=== PATIENT | male | born 1945 | race Caucasian/White ===

== ENCOUNTER 2022-06-12 09:22 | Emergency (ER) | payer MEDICARE, BC ==
[~2022-06-12] VITALS: Ht 172.7 cm; Wt 79.5 kg
[~2022-06-12 09:22] MED LIST: ALBU8.5H17 IH; DOCU100C40 PO; LACT1CAP26 PO; LISI-230 PO; PRAV40TA65 PO; SODI650T29 PO
[2022-06-12 10:16] LABS: BASOPHILS % (AUTO) 0.9 % (0-1); EOSINOPHILS % (AUTO) 0.4 % (0-6); HEMATOCRIT 33.4 % (42.0-52.0); HEMOGLOBIN 11.6 g/dl (14.0-17.9); LYMPHOCYTES # (AUTO) 0.8 X10'3 (1.1-4.8); LYMPHOCYTES % (AUTO) 19.9 % (21-51); MEAN CORPUSCULAR HEMOGLOBIN 33.1 PG (27.0-31.0); MEAN CORPUSCULAR HGB CONC 34.6 g/dL (33.0-36.5); MEAN CORPUSCULAR VOLUME 95.5 FL (78-98); MONOCYTES # (AUTO) 0.6 X10'3 (0-0.9); MONOCYTES % (AUTO) 13.7 % (2-12); NEUTROPHILS # (AUTO) 2.8 X10'3 (1.8-7.7); NEUTROPHILS % (AUTO) 65.1 % (42-75); PLATELET COUNT 392 X10'3 (140-440); RED CELL DISTRIBUTION WIDTH 13.9 % (11.5-14.5); WHITE BLOOD COUNT 4.3 X10'3 (4.5-11.0)
[2022-06-12 10:28] LABS: ALANINE AMINOTRANSFERASE 54 U/L (12-78); ALBUMIN 3.9 G/DL (3.4-5.0); ALBUMIN/GLOBULIN RATIO 0.9 (1.1-1.5); ALKALINE PHOSPHATASE 20 IU/L (46-116); ANION GAP 14 (8-16); ASPARTATE AMINO TRANSFERASE 120 U/L (10-37); BILIRUBIN,TOTAL 0.3 MG/DL (0.1-1.0); BLOOD UREA NITROGEN 27 MG/DL (7-18); BUN/CREATININE RATIO 11.9 (5.4-32.0); CALCIUM 8.4 MG/DL (8.5-10.1); CHLORIDE 100 MMOL/L (99-107); CREATININE 2.26 MG/DL (0.60-1.10); GLUCOSE 101 MG/DL (70-104); POTASSIUM 3.5 MMOL/L (3.5-5.1); SODIUM 134 MMOL/L (135-145); TOTAL CARBON DIOXIDE 20.4 MMOL/L (24-32); TOTAL PROTEIN 8.3 G/DL (6.4-8.2); eGFR 28 ML/MIN
[2022-06-12 12:02] LABS: MAGNESIUM 1.8 MG/DL (1.5-2.4)
[2022-06-12 12:03] LABS: CREATINE KINASE 2808 U/L (39-308)
[2022-06-12] MEDS ORDERED: normal saline 1000ML IV soln IVB ONE (13:50)
[2022-06-12 13:54] LABS: C-REACTIVE PROTEIN 3.04 MG/DL (0.0-0.5)
[2022-06-12] MEDS ORDERED: BEBTELOVIMAB 175 MG/2 ML VIAL IV ONE ×2 (17:30→18:30)
[2022-06-12] MEDS ORDERED: acetaminophen 325mg tablet PO ONE (17:35)
[2022-06-12 20:48] VITALS: BP 147/86
== END 2022-06-12 20:50 | disposition home or self-care (01) ==
LOC: ER 09:23
DX: U07.1 COVID-19 (principal); I11.9 Hypertensive heart disease without heart failure; E78.00 Pure hypercholesterolemia, unspecified; K21.9 Gastro-esophageal reflux disease without esophagitis; E11.9 Type 2 diabetes mellitus without complications; Z79.899 Other long term (current) drug therapy
CPT/HCPCS: 36415; 71045; 80053; 82550; 83735; 84484; 85025; 85651; 86140; 87635; 93005; 96360; 96361; 99285; C9803; J7030; M0222; Q0222

== ENCOUNTER 2025-06-14 11:21 | Inpatient (IN) | payer MEDICARE, BC ==
[~2025-06-14] VITALS: Ht 172.7 cm; Wt 73.9 kg
--- NOTE | 2025-06-14 12:51 | Physician Documentation ---
History of Present Illness ~ Chief Complaint: Mechanical Fall Stated Complaint: FELL LAST WEEK Time Seen by MD: 12:26 Primary Medical Doctor: Dr. Campo Source: patient (Bed 10) HPI Patient comes in for evaluation of equilibrium problems and falls. He reports that over the last six months he began to have some problems with balance and equilibrium, which started out mild but have gotten somewhat worse. On Tuesday, while out of state, the patient was sitting on a couch and when he was helped up to his feet he found that he could not stand up and stay standing, secondary to weakness and balance difficulties. After a while he felt improved, and drove himself back to his motel, where he fell backwards, striking his head against a door jam but not losing consciousness. He was unable to stand up and was helped to crawl into his motel room, reports that he spent an hour and a half on the ground and eventually was able to stand. On Tuesday three days ago he was able to go to the airport, and to fly home to [place] and drive back to [place], but he has been staggering, feeling off balance, and feeling like he is going to fall. Additionally, the patient reports night sweats, but does not know if he has had any fever. He denies any associated cough, shortness for breath, chest pain, abdominal pain, dysuria, or any other new symptoms. When he spoke with his PMD, he was advised to take the ambulance to the hospital for further evaluation. Tetanus within 5 Years?: Yes Medication Reconciliation Allergies: Coded Allergies: No Known Allergies (Unverified , 06/14/25) Scheduled Amlodipine Besylate (Amlodipine Besylate), 1 TAB PO DAILY, (Reported) Mesalamine (Mesalamine ER), 2 CAP PO DAILY, (Reported) Rosuvastatin Calcium (Rosuvastatin Calcium), 1 TAB PO HS, (Reported) Discontinued Medications Albuterol Sulfate (Proair Hfa), 2 PUFFS IH Q4H PRN for SOB or wheezing Discontinued Reason: patient no longer taking Docusate Sodium (Docusate Sodium), 100 MG PO BID Discontinued Reason: patient no longer taking Lactobacillus Rhamnosus (Culturelle), 10,000 MMU PO BIDWM Discontinued Reason: patient no longer taking Lisinopril/Hydrochlorothiazide 10-12.5 Mg* (Lisinopril-Hctz 10-12.5 Mg*), 1 EACH PO DAILY, (Reported) Discontinued Reason: patient no longer taking Pravastatin Sodium* (Pravachol*), 40 MG PO DAILY, (Reported) Discontinued Reason: patient no longer taking Sodium Bicarbonate (Antacid), 650 MG PO QID Discontinued Reason: patient no longer taking Past Medical History Past Medical History: CVA/TIA/Stroke (Many years ago), High Cholesterol, Hypertension, GERD, Diabetes, Osteoarthritis, *CANCER* Other Past Medical History: Carotid plaque Past Surgical History: noncontributory Smoking Status: Never smoker Alcohol Use: Rarely Drug Use: none Lives with: Alone Lives In: Home Occupation: employed, other Review of Systems All Other Systems at this time: Reviewed and Negative Physical Exam Vital Signs: Temperature: 99.5, Source: Oral, Heart Rate: 70, Respiratory Rate: 12, BP: 136/66, Pulse Oximetry: 94, Weight: 73.900 Oxygen Flow Rate: 0 Physical Exam General: Pt is awake, alert, oriented x4 in no acute distress and well appearing. Head: Normocephalic and atraumatic. Eyes: Conjunctiva normal. ENT: Mucous membranes moist. Neck: Supple. Chest: Clear to auscultation bilaterally, without rales, rhonchi, or wheezes. There is no accessory muscle use or retractions. Cardiac: Regular rate and rhythm without murmurs, gallops or rubs. Palpation of the chest wall is normal. Abd: Soft, nondistended, nontender, with normoactive bowel sounds. No guarding or rebound. Extremities: Within normal limits without cyanosis, clubbing, or edema. Skin: [place], warm and dry with no significant rash appreciated. Neuro: Cranial nerves II-XII intact. 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 Gait not tested during this examination due to his history of equilibrium. Progress Results/Orders Results/Orders Orders - CINTHIA CASTLE MD Chest,Single View (06/14/25 12:51) Monitor (06/14/25 12:51) Saline Lock (06/14/25 12:51) Ct Head (06/14/25 13:11) Page Hospitalist (06/14/25 14:55) Fill Out Med Reconciliation (06/14/25 14:55) Completed Orders - CINTHIA CASTLE MD Cbc/Diff (06/14/25 12:51) Electrocardiogram (06/14/25 12:51) Chest,Single View (06/14/25 12:51) Hs Troponin I W Calculations (06/14/25 12:51) CMP (06/14/25 12:51) Ct Head (06/14/25 13:11) Ua W/Microscopic, Cult If Ind (06/14/25 14:00) Vital Signs 06/14/25 06/14/25 06/14/25 06/14/25 11:25 12:00 12:57 13:00 Temp 99.5 Pulse 70 68 66 Resp 12 11 12 B/P (MAP) 136/66 127/68 (87) 126/70 (88) Pulse Ox 94 96 96 O2 Flow Rate 0 0 0 06/14/25 14:12 Pulse 64 Resp 11 B/P (MAP) 129/62 (84) Pulse Ox 97 O2 Flow Rate 0 Laboratory Tests Test 06/14/25 13:04 06/14/25 14:00 White Blood Count 9.1 Red Blood Count 3.24 L Hemoglobin 10.3 L Hematocrit 30.9 L Mean Corpuscular Volume 95.3 Mean Corpuscular Hemoglobin 31.8 H Mean Corpuscular Hemoglobin Concent 33.4 Red Cell Distribution Width 14.0 Platelet Count 366 Mean Platelet Volume 7.2 L Neutrophils (%) (Auto) 70.9 Lymphocytes (%) (Auto) 17.3 L Monocytes (%) (Auto) 10.4 Eosinophils (%) (Auto) 1.0 Basophils (%) (Auto) 0.4 Neutrophils # (Auto) 6.5 Lymphocytes # (Auto) 1.6 Monocytes # (Auto) 0.9 Eosinophils # (Auto) 0.1 Basophils # (Auto) 0.0 CBC Comment Sodium Level 135 Potassium Level 4.1 Chloride Level 102 Carbon Dioxide Level 26.2 Anion Gap 7 L Blood Urea Nitrogen 18 Creatinine 1.37 H Estimated GFR/1.73 m2 50 BUN/Creatinine Ratio 13.1 Glucose Level 102 Calcium Level 9.0 Total Bilirubin 0.5 Aspartate Amino Transf (AST/SGOT) 15 Alanine Aminotransferase (ALT/SGPT) 13 Alkaline Phosphatase 41 L Troponin I High Sensitivity 6 Total Protein 7.9 Albumin 2.9 L Globulin 5.0 H Albumin/Globulin Ratio 0.6 L Chemistry Comments Urine Specimen Description Non-specified Urine Color Yellow Urine Clarity Clear Urine pH 6.0 Urine Specific Spangle 1.010 Urine Protein 30 H Urine Glucose (UA) Negative Urine Ketones Negative Urine Occult Blood Small Urine Nitrite Negative Urine Bilirubin Negative Urine Urobilinogen 0.2 Urine Leukocyte Esterase Negative Urine RBC 3-10 Urine WBC 0-4 Urine Squamous Epithelial Cells Few Urine Bacteria Few Urine Coarse Granular Casts 0-3 Urine Culture Indicated Not ind Volume Urine Centrifuged 10 ml Urine Comment Consults/PCP Consults/PCP : Time Call Requested: 14:55 Consult Reason/Comments: Hospitalist Medical Decision Making Additional Comment Patient is suffering from progressive problems with equilibrium and balance, had a fall, concern for possible incipient falls, staggering. No acute intracranial hemorrhage or skull fracture noted on CT but there are some abnormalities that will require further investigation. As the patient is having difficulty with gait we will plan admission to the hospitalist service for further evaluation management including MRI, neurologic consultation if needed. At this time there was no significant electrolyte abnormalities or evidence for acute cardiac ischemia. Departure Time of Disposition: 14:54 Admitted to Inpatient Unit: yes, to hospitalist Impression: Primary Impression: Fall Additional Impressions: Loss of equilibrium Head trauma Condition: Guarded Referrals: NO PRIMARY CARE PROVIDER (PCP) Education Educated: Patient Educated regarding: diagnosis, treatment Signature Scribe Signature: Attestation: CINTHIA CASTLE MD Jun 14, 2025 12:51
--- NOTE | 2025-06-14 13:07 | ELECTROCARDIOGRAPH REPORT ---
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 Ramses Pa Measurements Intervals Norris Rate: 65 P: 46 TN: 178 QRS: 38 QRSD: 104 T: 59 QT: 427 QTc: 444 Interpretive Statements Sinus rhythm RSR' in V1 or V2, right VCD or RVH Electronically Signed On 06-19-2025 20:05:[address] Ramses Pa Please click the below link to view image of tracing.
[2025-06-14 13:16] LABS: MEAN PLATELET VOLUME 7.2 FL (7.4-10.4); RED CELL DISTRIBUTION WIDTH 14.0 % (11.5-14.5)
[2025-06-14 13:25] LABS: CREATININE 1.37 MG/DL (0.60-1.10); TOTAL CARBON DIOXIDE 26.2 MMOL/L (24-32); eCRCL 42 ML/MIN; eGFR 50 ML/MIN
--- NOTE | 2025-06-14 13:36 | RADIOLOGY REPORT ---
EXAM: CT CT HEAD HISTORY: dizzy, fall, head trauma COMPARISON: None TECHNIQUE: Noncontrast axial CT images of the head were performed. Sagittal and coronal reformatted i mages were obtained. This CT exam was performed using 1 or more of the following dose reduction techn iques: Automated exposure control, adjustment of the mA and/or kv according to patient size, or the u se of iterative reconstruction techniques. Radiation Dose: CTDI volume is 53.95 mGy. Dose-length product is 987.68 mGy*cm FINDINGS: There is mild global brain atrophy. No intracranial hemorrhage, mass, midline shift, hydrocephalus, o r evidence of acute large vessel infarct. There is a small cavum septum pellucidum. There is bony ero tong of the posterior sella. There are atherosclerotic calcifications of the cavernous ICAs. There is mild mucosal thickening of the bilateral maxillary sinuses. The bilateral mastoid air cells and midd le ear spaces are clear. No cranial fracture or scalp edema. IMPRESSION: 1. Erosion of the posterior sella may be due to subtle pituitary mass. Recommend follow-up pre and p ost IV contrast CT scan of the brain and sella for better characterization. 2. No other acute intracranial process is identified here. 3. Mild bilateral maxillary sinus disease.
--- NOTE | 2025-06-14 13:43 | RADIOLOGY REPORT ---
EXAM: DI CHEST,SINGLE VIEW Indication: dizzy Technique: Single frontal view of the chest was obtained Comparison: CHEST,SINGLE VIEW on DOS: 06/12/22 FINDINGS: Lines and Tubes: None Lungs: Right upper lung consolidative opacity. Pleura: No effusion. No pneumothorax. Cardiomediastinal contours: Unremarkable. Atherosclerotic vascular calcifications of the thoracic ao rta are noted. Bones: No acute osseous abnormality. IMPRESSION: Right upper lung consolidative opacity.
[2025-06-14 14:18] LABS: LEUKOCYTE ESTERASE ,URINE NEGATIVE (Neg); NITRITES, URINE NEGATIVE (Neg); OCCULT BLOOD,URINE SMALL (Neg)
[2025-06-14 14:31] LABS: UA COLLECTION TYPE NON-SPECIFIED
[2025-06-14 14:32] LABS: SQUAMOUS EPITHELIAL CELL,UR FEW /LPF (FEW)
[2025-06-14 14:33] LABS: COARSE GRANULAR CAST 0-3 /LPF (NEGATIVE)
[2025-06-14] MEDS ORDERED: AMLO5TAB16 PO (15:58)
[2025-06-14] MEDS ORDERED: MESA0.374 PO (15:58)
[2025-06-14] MEDS ORDERED: ROSU10TA72 PO (15:58)
[2025-06-14] MEDS ORDERED: mag hydrox/Alum hydrox/simeth 30ml oral suspension PO PRN (16:15)
[2025-06-14] MEDS ORDERED: magnesium hydroxide 30ml (MOM) UD suspension PO PRN (16:15)
[2025-06-14] MEDS ORDERED: magnesium sulf-water 2g/50mL 50 ML IV PRN (16:15)
[2025-06-14] MEDS ORDERED: magnesium sulf-water 4G/100mL 100 ML IV PRN (16:15)
[2025-06-14] MEDS ORDERED: potassium Cl 40MEQ/1/2NS 520ml 520 ML IV PRN (16:15)
[2025-06-14] MEDS ORDERED: ondansetron/PF 4mg/2ml inj IV PRN (16:15)
[2025-06-14] MEDS ORDERED: potassium Cl 20 mEq SR tablet PO PRN ×2 (16:15)
[2025-06-14] MEDS ORDERED: magnesium Cl slow-release 64mg tablet PO PRN (16:15)
--- NOTE | 2025-06-14 16:58 | HISTORY AND PHYSICAL-Residence ---
History & Physical Providers to Resident Creating Document: HUSAM CAT, MEENA ~ History of Present Illness Primary Medical Doctor: Dr. Campo Reason for Admit\Complaint: Gait instability History of Present Illness This is a 79-year-old male patient with a history of hypertension, hyperlipidemia and ulcerative colitis admitted for recurrent gait instability and balance problems. The patient fell four days ago and hit his head, associated with mild persistent frontal headache. Before the patient's fall he was sitting on a couch and when he was helped up to his feet he found that he could not stand up and stay standing, secondary to weakness and balance difficulties. He denies syncope, dizziness, lightheadedness, nausea or vomiting. The patient states that the unbalance feeling is present only when he walks, resolving immediately after he stops. After the fall episode he continues to feel off balance, like he is going to fall. Additionally, the patient reports night sweats, but does not know if he has had any fever. He denies any associated cough, shortness for breath, chest pain, abdominal pain, dysuria, or any other new symptoms. Allergies: Coded Allergies: No Known Allergies (Unverified , 06/14/25) Home Medications Home Medications Active Reported Amlodipine Besylate 5 Mg Tablet 1 Tab PO DAILY Rosuvastatin Calcium 10 Mg Tablet 1 Tab PO HS Mesalamine ER (Mesalamine) 0.375 Gram Cap.er.24h 2 Cap PO DAILY Past Medical History Past Medical History Hypertension; hyperlipidemia; ulcerative colitis Past Surgical History Surgical History Comment Prostatectomy 27 years ago Past Social History Social History Comment Patient used to smoke one pack a day from 17 to 50-year-old. He quit 29 years ago. Denies any drug use or alcohol abuse. Smoking: Quit greater than 1 year, Other Alcohol Use: Rarely Drug Use: None Lives with: Alone Lives In: Home Occupation: employed, retired, other ROS All Other Systems: Reviewed and Negative Constitutional: Reports: no symptoms reported Eyes: Reports: no symptoms reported ENT: Reports: no symptoms reported Respiratory: Reports: no symptoms reported Cardiovascular: Reports: no symptoms reported Gastrointestinal: Reports: no symptoms reported Genitourinary: Reports: no symptoms reported Male Genitalia: Reports: no symptoms reported Neurological: Reports: see HPI Musculoskeletal: Reports: no symptoms reported Integumentary: Reports: no symptoms reported Allergic/Immunologic: Reports: no symptoms reported Hematologic/Lymphatic: Reports: no symptoms reported Endocrine: Reports: no symptoms reported Psychiatric: Reports: no symptoms reported Exam Vitals: Vital Signs Date Time Temp Pulse Resp B/P (MAP) Pulse Ox O2 Delivery O2 Flow Rate FiO2 06/14/25 14:12 64 11 129/62 (84) 97 0 06/14/25 11:25 99.5 General: General: Awake and Alert, no acute distress. HEENT: Conjunctiva pink, Sclera clear, Mucus Membranes moist. Neck: Supple without masses and tenderness. Resp: Unlabored. Lungs clear to auscultation bilaterally. Heart: Regular Rate and rhythm, normal S1 and S2 without murmur, rub or gallop. Abdomen: Soft and non tender no organomegaly Extremities: No cyanosis,clubbing or edema. Skin: Warm and Dry. Neuro: No motor or sensory loss noted. II-XII facial nerves grossly intact. Romberg negative. No dysdiadochokinesia. No tremor or bradykinesia. Diagnostic Data Last Recorded Lab Results: 06/14/25 1304 06/14/25 1304 Advance Care Planning Advanced Care plannin - 30 Minutes (I discussed advanced care directives with the patient who decides to be DNR) Additional Plan Recurrent gait instability - unclear cause Subtle pituitary mass found on head CT - recommending further investigation Ordered head MRI with contrast Ordered carotid ultrasound Ordered echocardiogram Ordered vitamin B12 Ordered TSH Symptomatic treatment only Chronic kidney disease- stage IIIA Creatinine 1.37. Baseline 1.83. Monitor daily. No additional treatment at this time Chronic hypertension - well-controlled BP: 118/68 mmHg Continue amlodipine 5 mg daily Hyperlipidemia Ordered lipid panel Continue rosuvastatin 10 mg daily Ulcerative colitis - no signs of acute flare Continue mesalamine 0.375 mg daily Code Status: Full code DVT prophylaxis: Heparin Analgesia/sedation: Morphine Line/tube: PIV GI prophylaxis: None Nutrition: Regular diet Prognosis: Guarded PT: Yes Disposition: Pending further workup. Patient is seen and examined in the ER in bed 11 prior to him being moved to [facility] B. agree with the above Date of Service: Jun 14, 2025 Billing Provider: MIK RASMUSSEN MD Common Visit Codes: [id number] INP/OBS CARE (HIGH) HUSAM CAT, MEENA Jun 14, 2025 16:58 MIK RASMUSSEN MD Jun 14, 2025 17:58
[2025-06-14 17:52] LABS: CHOL/HDL RATIO 2.4 (0.00-4.99); LDL CHOLESTEROL 53 MG/DL (50-100)
--- NOTE | 2025-06-14 18:39 | VASCULAR REPORT ---
Indication: Frequent falls Technique: Real-time ultrasound images of the neck vessels with whitmore-scale, color and wave Doppler we re obtained. Comparison: None Findings: Moderate right carotid bulb plaque. Moderate to severe left carotid bulb plaque. Turbulent flow with in the left proximal ICA. The following peak systolic velocities were recorded in cm/sec: Right internal carotid: 78 Right common carotid: 89 Right external carotid: 104 Right internal/common carotid ratio: 0.9 Left internal carotid: 220 Left common carotid: 70 Left external carotid: 115 Left internal/common carotid ratio: 3.4 Right vertebral artery: Patent with antegrade direction of flow. Left vertebral artery: Patent with antegrade direction of flow. Right subclavian velocity 233 cm/sec Impression: Approximately 50-69% stenosis of the left internal carotid artery by velocity criteria. Recommend CT angiogram of the neck to further evaluate as this is approaching 70% stenosis. Elevated right subclavian artery velocity likely consistent with hemodynamically significant stenosis .
--- NOTE | 2025-06-14 18:49 | RADIOLOGY REPORT ---
PROCEDURE: MR MRI HEAD Indication: With contrast. Recurrent gait instability. Pituitary mass found on CT. COMPARISON: CT CT HEAD on DOS: 06/14/25 TECHNIQUE: Multiplanar multisequence images of the brain are obtained. FINDINGS: There is no abnormal diffusion restriction. There is no intracranial hemorrhage. Enhancing mass that is T2 bright within the sella with suprasellar extension measuring 2.2 x 1.7 cm. This abuts the optic chiasm. There is likely extension into the pituitary infundibulum which is sligh tly deviated to the left. The ventricles are midline and normal in size. The cisterns are patent. Normal intracranial flow void s are preserved. No abnormal susceptibility signal. There is mild global cerebral volume loss. There are mild periventricular and subcortical white matter T2 and FLAIR hyperintense changes. Mastoids are well pneumatized. Mild mucosal thickening of the ethmoids The visualized orbits are unr emarkable. IMPRESSION: Enhancing mass within the sella with suprasellar extension measuring 2.2 x 1.7 cm. Recommend neurosu rgical consultation for further management. No acute cerebrovascular ischemia. Mild global cerebral volume loss. Mild chronic microvascular ischemic changes.
[2025-06-14] MEDS: GADOTERATE MEGLUMINE 7.5 MMOL/15 ML VIAL IV ONE (18:58)
[2025-06-14] MEDS: K and/or MAG REPLACEMENT MC SCH (19:44)
[2025-06-14] MEDS: docusate sod 100mg capsule PO SCH (20:00)
[2025-06-14] MEDS: CefTRIAXone/D5W-Rocephin 1gm 50 ML IV SCH (20:53)
[2025-06-14 22:00] VITALS: BP 114/54; PULSE 71; RESP 15; TEMP 98.1; O2SAT 94
[2025-06-15 02:00] VITALS: BP 141/69; PULSE 71; RESP 15; TEMP 97.6; O2SAT 95
[2025-06-15 06:00] VITALS: BP 136/73; PULSE 71; RESP 16; TEMP 97.6; O2SAT 95
[2025-06-15] MEDS: enoxaparin 40mg/0.4ml syringe SUBCUT SCH (08:06)
[2025-06-15] MEDS: MESALAMINE 0.375 GM PO SCH (09:26)
[2025-06-15 10:08] LABS: MEAN PLATELET VOLUME 7.2 FL (7.4-10.4); RED CELL DISTRIBUTION WIDTH 13.9 % (11.5-14.5)
[2025-06-15 10:25] LABS: CREATININE 1.26 MG/DL (0.60-1.10); TOTAL CARBON DIOXIDE 22.9 MMOL/L (24-32); eCRCL 46 ML/MIN; eGFR 55 ML/MIN
[2025-06-15 11:00] VITALS: BP 111/59; PULSE 69; RESP 16; TEMP 97.9; O2SAT 90
[2025-06-15] MEDS ORDERED: CEFD300C3 PO (14:19)
[2025-06-15] MEDS ORDERED: CLOP-32 PO (14:25)
[2025-06-15] MEDS ORDERED: ASPI-1265 PO (14:25)
[2025-06-15] MEDS ORDERED: ATOR40TA72 PO (14:25)
--- NOTE | 2025-06-15 18:07 | DISCHARGE SUMMARY-Residence ---
Discharge Summary Providers to Resident Creating Document: ROSSY JETTMEENA VAZQUEZ ~ Discharge Summary Admission Diagnosis: Recurrent fall Hospital Course DATE OF ADMISSION: 06/14/2025 DATE OF DISCHARGE: 06/15/2025 Labs at the time of discharge WBC 8.1 Hemoglobin 10.2 Sodium 134 Potassium 3.[address] 1. Erosion of the posterior sella may be due to subtle pituitary mass. Recommend follow-up pre and post IV contrast CT scan of the brain and sella for better characterization. 2. No other acute intracranial process is identified here. 3. Mild bilateral maxillary sinus disease. Head MRI Enhancing mass within the sella with suprasellar extension measuring 2.2 x 1.7 cm. Recommend neurosurgical consultation for further management. No acute cerebrovascular ischemia. Mild global cerebral volume loss. Mild chronic microvascular ischemic changes. Carotid ultrasound Approximately 50-69% stenosis of the left internal carotid artery by velocity criteria. Recommend CT angiogram of the neck to further evaluate as this is approaching 70% stenosis. Elevated right subclavian artery velocity likely consistent with hemodynamically significant stenosis. Echocardiogram LEFT VENTRICLE Normal LV size and wall thickness. Overall systolic function appears to be normal. Overall LVEF is visually estimated at 60%. RIGHT VENTRICLE Right ventricle is moderately dilated with grossly normal function. Estimated PA systolic pressure is 43 mmHg. ATRIA Left atrium is mildly dilated. Right atrium appears to be moderately dilated. AORTIC VALVE Probable trileaflet AV appears sclerotic without gross stenosis or insufficiency. Measurements are estimates due to poor image quality and poor Doppler angles. Recommend clinical correlation if indicated. MITRAL VALVE Moderate appearing MV annular calcification without gross stenosis. Trace to mild regurgitation. Measurements are estimates due to poor image quality and poor Doppler angles. TRICUSPID VALVE TV appears structurally normal with trace regurgitation. PULMONIC VALVE Grossly normal PV without stenosis, physiologic insufficiency. GREAT VESSELS Aortic root is not well visualized. IVC is not well visualized. PERICARDIUM Normal pericardium. No pericardial effusion seen. Other Information Study Quality: Poor. Poor parasternal windows. Discharge Diagnosis\Comment: Recurrent gait instability likely secondary to mass in the brain Pituitary mass CKD stage 3 Chronic hypertension Hyperlipidemia Ulcerative colitis, no signs of acute flare Internal carotid artery stenosis Operations\Procedures: None Consultants: None Complications: None Condition on DC: Stable New Medications: Aspirin (Aspirin) 81 Mg Tab.chew 1 TAB PO DAILY for 30 Days, #30 TAB.CHEW Cefdinir* (Cefdinir*) 300 Mg Capsule 1 CAP PO Q12H for 3 Days, #6 CAP Clopidogrel Bisulfate (Plavix) 75 Mg Tablet 1 TAB PO DAILY for 30 Days, #30 TAB 0 Refills Continued Medications: Amlodipine Besylate (Amlodipine Besylate) 5 Mg Tablet 1 TAB PO DAILY Mesalamine (Mesalamine ER) 0.375 Gram Cap.er.24h 2 CAP PO DAILY Rosuvastatin Calcium (Rosuvastatin Calcium) 10 Mg Tablet 1 TAB PO HS Discharge Summary: HPI This is a 79-year-old male patient with a history of hypertension, hyperlipidemia and ulcerative colitis admitted for recurrent gait instability and balance problems. The patient fell four days ago and hit his head, associated with mild persistent frontal headache. Before the patient's fall he was sitting on a couch and when he was helped up to his feet he found that he co uld not stand up and stay standing, secondary to weakness and balance difficulties. He denies syncope, dizziness, lightheadedness, nausea or vomiting. The patient states that the unbalance feeling is present only when he walks, resolving immediately after he stops. After the fall episode he continues to feel off balance, like he is going to fall. Additionally, the patient reports night sweats, but does not know if he has had any fever. He denies any associated cough, shortness for breath, chest pain, abdominal pain, dysuria, or any other new symptoms. Hospital course Patient was admitted for recurrent gait instability. Head CT was done which showed subtle pituitary mass. MRI with IV contrast was done which showed enhancing mass in the sella with the suprasellar extension measuring 0.2x1.7 cm. Which requests for the neurosurgical evaluation. Carotid vascular ultrasound was done which showed 50-69% stenosis on left internal carotid artery, approaching 70% stenosis. Elevated right subclavian artery velocity. Patient has a history of CKD stage IIIA, creatinine the baseline. Continued patient's home medication amlodipine 5 mg for hypertension. Continue home medication rosuvastatin for hyperlipidemia and mesalamine for history of ulcerative colitis. We discussed with the patient about the MRI and CT findings and advised him to follow up with the neurosurgeon. Patient is stable enough to be discharged home At the time of discharge he had the following physical examination findings General: Awake and Alert, no acute distress. HEENT: Conjunctiva pink, Sclera clear, Mucus Membranes moist. Neck: Supple without masses and tenderness. Resp: Unlabored. Lungs clear to auscultation bilaterally. Heart: Regular Rate and rhythm, normal S1 and S2 without murmur, rub or gallop. Abdomen: Soft and non tender no organomegaly Extremities: No cyanosis,clubbing or edema. Skin: Warm and Dry. Neuro: No motor or sensory loss noted. II-XII facial nerves grossly intact. Romberg negative. No dysdiadochokinesia. No tremor or bradykinesia. Discharge medications Aspirin 81 mg Clopidogrel 75 mg daily Rosuvastatin 10 mg daily Cefdinir 300 mg b.i.d. for three days Amlodipine 5 mg daily Mesalamine Discharge instructions Follow up with PCP in two weeks You have a mass on a pituitary gland, make an appointment and follow up with a neurosurgeon. You also have left internal carotid artery stenosis 50-69%, follow up with Dr. Gaines regarding this. Continue to take aspirin, Plavix and atorvastatin, further recommendations will be given by Dr. Gaines Call unknown or return to ER in case of increased headache, blurring of vision, focal weakness. *Problems/Diagnosis: (1) Pituitary mass (2) Gait instability Total Time Spent on D/C: > 30 Minutes Date of Service: Jun 15, 2025 Billing Provider: MIK RASMUSSEN MD Common Visit Codes: [id number] DISCH DAY >30min WILBER JETT, RES Jun 15, 2025 18:07 MIK RASMUSSEN MD Jun 16, 2025 10:20
--- NOTE | 2025-06-15 19:07 | CARDIOLOGY REPORT ---
APPROVED REPORT EXAM: Limited 2D, Doppler, and color-flow Echocardiogram. 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 227.5 cm/s AoV VTI 41.2 cm AO Peak GR. 20.7 mmHg AO Mean GR. 10 mmHg LVOT VTI 27.89 cm LVOT Peak Alvaro. 131.0 cm/s AIMEE(VTI)/BSA 2.36 cm2/m2 AIMEE (VTI) 2.36 cm2 Mitral Valve MV E Velocity 85.0 cm/s MV Peak Gr. 5 mmHg MV DECEL TIME 340 ms MV A Velocity 106.6 cm/s MV Mean Gr. 2 mmHg MV PHT 76 ms E/A Ratio 0.8 MVA (PHT) 2.89 cm2 MV AKtk397.7 cm/sMV VMean66.4 cm/s MVA VTI2.75 cm2MV VTI35.3 cm Tricuspid Valve TR P. Velocity 289 cm/s RAP ESTIMATE 10 mmHg TR Peak Gr. 33 mmHg RVSP 43 mmHg LEFT VENTRICLE Normal LV size and wall thickness. Overall systolic function appears to be normal. Overall LVEF is vi sually estimated at 60%. RIGHT VENTRICLE Right ventricle is moderately dilated with grossly normal function. Estimated PA systolic pressure is 43 mmHg. ATRIA Left atrium is mildly dilated. Right atrium appears to be moderately dilated. AORTIC VALVE Probable trileaflet AV appears sclerotic without gross stenosis or insufficiency. Measurements are es timates due to poor image quality and poor Doppler angles. Recommend clinical correlation if indicate d. MITRAL VALVE Moderate appearing MV annular calcification without gross stenosis. Trace to mild regurgitation. Me asurements are estimates due to poor image quality and poor Doppler angles. TRICUSPID VALVE TV appears structurally normal with trace regurgitation. PULMONIC VALVE Grossly normal PV without stenosis, physiologic insufficiency. GREAT VESSELS Aortic root is not well visualized. IVC is not well visualized. PERICARDIUM Normal pericardium. No pericardial effusion seen. Other Information Study Quality: Poor. Poor parasternal windows. Conclusion Normal LV size and wall thickness. Overall systolic function appears to be normal. Overall LVEF is vi sually estimated at 60%. Right ventricle is moderately dilated with grossly normal function. Estimated PA systolic pressure is 43 mmHg. Left atrium is mildly dilated. Right atrium appears to be moderately dilated. Probable trileaflet AV appears sclerotic without gross stenosis or insufficiency. Measurements are e stimates due to poor image quality and poor Doppler angles. Recommend clinical correlation if indica manuela. Moderate appearing MV annular calcification without gross stenosis. Trace to mild regurgitation. Measurements are estimates due to poor image quality and poor Doppler angles. TV appears structurally normal with trace regurgitation. Normal pericardium. No pericardial effusion seen.
== END 2025-06-15 16:24 | disposition home or self-care (01) | DRG 71 ==
LOC: ER 11:22 → ED HOLD 15:10 → PCU 3S 17:43
PROVIDERS: ADMIT Internal Medicine; ATTEND Internal Medicine
DX: G93.89 Other specified disorders of brain (principal); K51.80 Other ulcerative colitis without complications; S09.90XA Unspecified injury of head, initial encounter; W18.39XA Other fall on same level, initial encounter; K21.9 Gastro-esophageal reflux disease without esophagitis; E23.6 Other disorders of pituitary gland; I65.22 Occlusion and stenosis of left carotid artery; I12.9 Hypertensive chronic kidney disease with stage 1 through stage 4 chronic kidney disease, or unspecified chronic kidney disease; E11.22 Type 2 diabetes mellitus with diabetic chronic kidney disease; N18.31 Chronic kidney disease, stage 3a; E78.00 Pure hypercholesterolemia, unspecified; Y93.89 Activity, other specified; Y92.89 Other specified places as the place of occurrence of the external cause; Y99.8 Other external cause status; Z86.73 Personal history of transient ischemic attack (TIA), and cerebral infarction without residual deficits
CPT/HCPCS: 36415; 70450; 70553; 71045; 80048; 80053; 80061; 81001; 82607; 83605; 83735; 84132; 84443; 84484; 85025; 87040; 93005; 93308; 93880; 99285; G0378; J0696; J1650; J7040